=== PATIENT | female | born 1940 | race Caucasian/White ===

== ENCOUNTER → 2019-07-09 08:53 | Outpatient (BNVA) | payer MEDICARE, MEDICAID, SELFPAY | PROVIDERS: Family Provider Nurse Practitioner Family; PCP Nurse Practitioner Family; Visit Provider Specialist | DX: G20 Parkinson's disease (principal); Z96.89 Presence of other specified functional implants; Z45.42 Encounter for adjustment and management of neurostimulator | CPT/HCPCS: 95983; 95984; 99214 ==

== ENCOUNTER → 2019-08-05 10:41 | Outpatient (BNVA) | payer MEDICARE, MEDICAID, SELFPAY | PROVIDERS: Family Provider Nurse Practitioner Family; PCP Nurse Practitioner Family; Visit Provider Surgery | DX: L72.9 Follicular cyst of the skin and subcutaneous tissue, unspecified (principal) | CPT/HCPCS: 88304 ==

== ENCOUNTER → 2019-11-19 08:29 | Outpatient (BNVA) | payer MEDICARE, MEDICAID, SELFPAY | PROVIDERS: Family Provider Nurse Practitioner Family; PCP Nurse Practitioner Family; Visit Provider Specialist | DX: Z45.42 Encounter for adjustment and management of neurostimulator (principal); G20 Parkinson's disease | CPT/HCPCS: 95983; 99214 ==

== ENCOUNTER 2020-01-29 06:35 | Outpatient (CLI) | payer MEDICARE, MEDICAID, SELFPAY ==
--- NOTE | 2020-01-29 07:42 | ECG_ITS ---
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 Interpretive Statements NAME OF STUDY: LEXISCAN SESTAMIBI STRESS TEST INDICATION: Preop Clearance PROCEDURE: At the baseline, the blood pressure was 140/62 mmHg with a heart rate of 82 bpm. The electrocardiogram showed normal sinus rhythm, normal axis. Baseline artifact. Nonspecific ST changes. The Lexiscan was infused over a period of 20 seconds. A total of 0.4 milligrams of Lexiscan was infused. The stress phase was continued for a total of 5 minutes. Heart rate at the end of the stress phase was 105 bpm with a blood pressure 149/100 mmHg. The EKG at the peak infusion revealed sinus tachycardia with no significant ST-T wave changes. The study was terminated due to protocol completion. Sestamibi was injected 20 seconds after the Lexiscan infusion. Blood pressure at the end of the recovery phase was 150/60 mmHg with a heart rate of 88 beats per minute. Isolated PACs noted in recovery. CONCLUSION: 1. No significant EKG changes with the LexiScan infusion. 2. No LexiScan induced chest pain or cardiac arrhythmia. 3. Normal blood pressure and heart rate response. 4. Sestamibi/sestamibi perfusion scan pending; see separate report. Electronically Signed On 01-29-2020 13:30:00 CDT by Sole Harris M.D. [id number]
--- NOTE | 2020-01-29 07:43 | NMCV_ITS ---
NM malachi perf SPECT r/s* [id number] Neva Pierre Age: 79 Gender: F : 1940 Exam Date: 01/29/2020 08:21 Ordering Phys: Sole Harris MD ([email or web address]) Technologist: BUD Taylor Exam Location: [facility] Indications: ENCOUNTER FOR OTHER PREPROCEDURAL EXAMINATION STRESS TEST Please see separate stress test report in [facility] for full findings IMAGE PROTOCOL Rest/Stress 1 Lexiscan Day Radiopharmaceutical Dose (mCi) Administration Site Administered by Rest: Tc-99m 10.7 IV BUD Rivera Sestamibi Stress:Tc-99m 32.4 IV BUD Taylor Sestamikiana Rest: 29-Jan-2020 60 Discovery 630 Stress: 29-Jan-2020 30 Discovery 630 0.4mg Lexiscan. Supine position only as patient was unable to lay prone. SPECT RESULTS Technical Quality: Good Raw Data Analysis: Breast attenuation Image Corrections: No attenuation or motion correction applied Summed Stress Score: 4 Summed Rest Score: 0 Summed Difference Score: 4 PERFUSION FINDINGS Small sized perfusion abnormality of mild severity of mid inferolateral and apical lateral caldwell on supine stress images. FUNCTIONAL RESULTS (calculated via Gated SPECT) Stress Image LV EF (%): 58 Stress EDV (mL):73 TID: 1.05 Stress ESV (mL):31 FUNCTIONAL FINDINGS: The left ventricle is normal in size. Transient Ischemia Dilatation of 1.1. There is normal left ventricular systolic function. The left ventricular ejection fraction is normal with a value of 58%. There is normal left ventricular wall thickening. Normal end diastolic and end systolic function. IMPRESSIONS 1. Small sized reversible perfusion abnormality of mild severity of mid inferolateral and apical lateral caldwell. 2. This may represent small area of ischemia in circumflex artery territory. However in absence of prone imaging, attenuation artifact cannot be completely ruled out. 3. Overall left ventricular systolic function is normal without regional wall motion abnormalities. 4. The left ventricular ejection fraction is normal with a value of 58%. 5. No prior similar studies to compare. Sole Harris MD (Electronically Signed) Final Date: 01 February 2020 19:23 S
[2020-01-29] MEDS: regadenoson 0.4 Mg/5 ml Syringe IVP (09:40)
[2020-01-29 09:41] VITALS: BP 149/60; PULSE 99
== END 2020-01-29 06:36 | disposition home or self-care (01) ==
LOC: CDL 06:35
PROVIDERS: PCP Nurse Practitioner Family; Visit Provider Internal Medicine Cardiovascular Disease
DX: Z01.810 Encounter for preprocedural cardiovascular examination (principal)
CPT/HCPCS: 78452; 93017; A9500; J2785